=== PATIENT | male | born 1940 | race Hispanic/Latino ===

== ENCOUNTER → 2017-11-12 | Outpatient (CLI) | payer OTHER ==
[~2017-11-12] MED LIST: ACETAMINOPHEN325 M1 PO; AMLODIPINE BESY10 MG PO; AMLODIPINE BESYL5 MG PO; ASPIRIN EC81 MG PO; ASPIRIN81 MG PO; ATORVASTATIN CA20 MG PO; ATORVASTATIN CA40 MG PO; AZITHROMYCIN250 MG PO; CEPHALEXIN500 MG PO; CLONIDINE HCL0.1 MG PO; FERROUS SULFAT325 MG PO; FEXOFENADINE H180 MG PO; FUROSEMIDE20 MG PO; FUROSEMIDE40 MG PO; GABAPENTIN300 MG PO; KIONEX15 GM/60 M; KIONEX15 GM/60 M PO; LANTUS 3ML100 UNITS/; LANTUS 3ML100 UNITS/ SQ; LANTUS100 UNITS/ SQ; LISINOPRIL10 MG PO; LOSARTAN POTASS50 MG PO; MUCINEX DM ER1 EACH PO; MUCUS RELIEF400 MG PO; NIFEDICAL XL60 MG PO; NIFEDIPINE ER30 M1 PO; NIFEDIPINE10 MG PO; NOVOLOG100 UNITS1; PHENERGAN25 MG/1 ML PO; RENA-VITE RX T1 EACH PO; RENA-VITE TABL0.8 MG; RENA-VITE TABL0.8 MG PO; RENVELA0.8 GM PEG; RENVELA800 MG PO; SIMVASTATIN40 MG PO; SODIUM CHLORIDE 0.9% 500ML 500 ML ONE; STOOL SOFTENER100 M1 PO; TEKTURNA300 MG PO; TEMAZEPAM15 MG PO; TYLENOL WITH C1 EACH PO; VIAGRA PO; VITAMIN D1000 UNIT PO; VITAMIN D250000 UNIT PO; VITAMIN D32000 UNIT PO
[2017-11-12 16:11] LABS: BASOPHILS % 0.4 % (0.0-1.0); EOSINOPHILS # (AUTO) 0.1 (0.0-0.4); EOSINOPHILS % 2.6 % (0.0-6.0); HEMATOCRIT 40.6 % (38.2-49.6); HEMOGLOBIN 13.3 g/dL (14.0-18.0); LYMPHOCYTES # (AUTO) 2.1 (1.0-3.2); LYMPHOCYTES % 41.7 % (18.0-39.1); MEAN CORPUSCULAR HEMOGLOBIN 33.6 pg (28-32); MEAN CORPUSCULAR HGB CONC 32.8 g/dL (31-35); MEAN CORPUSCULAR VOLUME 102.5 fL (81-99); MONOCYTES # (AUTO) 0.4 (0.2-0.8); MONOCYTES % 8.6 % (4.4-11.3); NEUTROPHILS # (AUTO) 2.4 (2.1-6.9); NEUTROPHILS % 46.5 % (38.7-80.0); PLATELET COUNT 200 x10e3/uL (140-360); RED BLOOD COUNT 3.96 x10e6/uL (4.3-5.7); RED CELL DISTRIBUTION WIDTH 12.7 % (11.7-14.4)
[2017-11-12 16:20] LABS: ANION GAP 17.9 mmol/L (8-16); CALCIUM 9.4 mg/dL (8.4-10.2); CREATININE, SERUM 6.99 mg/dL (0.72-1.25); POTASSIUM 4.9 mmol/L (3.5-5.1)
== END ==
LOC: RAD 05:00 → OR 11-13 05:12 → EDSTATUS 11-13 14:12
PROVIDERS: ATTEND Internal Medicine Gastroenterology
DX: Z01.818 Encounter for other preprocedural examination (principal); I10 Essential (primary) hypertension; Z68.23 Body mass index [BMI] 23.0-23.9, adult; Z86.010 Personal history of colon polyps; Z53.8 Procedure and treatment not carried out for other reasons
CPT/HCPCS: 36415; 80048; 84132; 85025; 93005; J7040

== ENCOUNTER 2017-11-13 06:49 | Observation (INO) | payer OTHER ==
[~2017-11-13] VITALS: Ht 162.6 cm; Wt 62.2 kg
[~2017-11-13 06:49] MED LIST changes: -SODIUM CHLORIDE 0.9% 500ML 500 ML ONE
[2017-11-13 08:20] LABS: ANION GAP 26.4 mmol/L (8-16); CALCIUM 10.4 mg/dL (8.4-10.2); CREATININE, SERUM 9.85 mg/dL (0.72-1.25)
[2017-11-13] MEDS ORDERED: SODIUM BICARBONATE 8.4% 50 ML VIAL IV STA ×2 (08:22→08:49)
[2017-11-13] MEDS ORDERED: DEXTROSE 50% SYRINGE 50 ML IV STA (08:22)
[2017-11-13 08:24] LABS: POTASSIUM 6.4 mmol/L (3.5-5.1)
[2017-11-13] MEDS ORDERED: INSULIN REGULAR, HUMAN 100 UNIT/1 ML 3ML VIAL IV ONE (08:30)
[2017-11-13] MEDS ORDERED: CALCIUM GLUCONATE 10% INJ 9.3 MEQ in SODIUM CHLORIDE 0.9% 100 ML 100 ML IV ONE (08:30)
[2017-11-13] MEDS ORDERED: SOD POLYSTYRENE SULFONATE SUSP 15 GM/60 ML BTL PO ONE (08:30)
[2017-11-13] MEDS ORDERED: SODIUM CHLORIDE 0.9% IV SCH (09:00)
[2017-11-13] MEDS ORDERED: CALCIUM CHLORIDE IV SCH (09:00)
[2017-11-13 12:44] LABS: ANION GAP 26.1 mmol/L (8-16); CALCIUM 10.6 mg/dL (8.4-10.2); CREATININE, SERUM 10.34 mg/dL (0.72-1.25)
[2017-11-13 12:50] LABS: POTASSIUM 6.1 mmol/L (3.5-5.1)
[2017-11-13] MEDS ORDERED: ONDANSETRON HCL INJ 2 MG/ML VIAL IV PRN (14:15)
[2017-11-13] MEDS ORDERED: SODIUM CHLORIDE FLUSH 10 ML SYR INJ PRN (14:15)
[2017-11-13] MEDS ORDERED: LABETALOL HCL IV 5 MG/ML 20ML MDV IV ONE (16:00)
[2017-11-13] MEDS: CLONIDINE HCL 0.2 MG TAB PO SCH ×2 (16:00→21:00)
[2017-11-13 16:04] VITALS: BP 200/95
[2017-11-13] MEDS ORDERED: SODIUM CHLORIDE 0.9% 1000ML 2,000 ML ONE (16:19)
[2017-11-13] MEDS: SODIUM BICARBONATE 650 MG TAB PO SCH (16:54)
[2017-11-13 17:00] VITALS: BP 164/98
[2017-11-13 17:18] VITALS: BP 200/95
[2017-11-13 20:00] VITALS: BP 107/69
[2017-11-14] VITALS (7 sets, daily range): BP systolic 100–142; BP diastolic 61–82
[2017-11-14 05:54] LABS: BASOPHILS % 0.4 % (0.0-1.0); EOSINOPHILS # (AUTO) 0.1 (0.0-0.4); EOSINOPHILS % 1.4 % (0.0-6.0); HEMATOCRIT 41.5 % (38.2-49.6); HEMOGLOBIN 13.6 g/dL (14.0-18.0); LYMPHOCYTES # (AUTO) 1.4 (1.0-3.2); LYMPHOCYTES % 17.1 % (18.0-39.1); MEAN CORPUSCULAR HEMOGLOBIN 33.7 pg (28-32); MEAN CORPUSCULAR HGB CONC 32.8 g/dL (31-35); MEAN CORPUSCULAR VOLUME 102.7 fL (81-99); MONOCYTES # (AUTO) 0.7 (0.2-0.8); NEUTROPHILS # (AUTO) 5.8 (2.1-6.9); PLATELET COUNT 200 x10e3/uL (140-360); RED BLOOD COUNT 4.04 x10e6/uL (4.3-5.7); RED CELL DISTRIBUTION WIDTH 12.7 % (11.7-14.4)
[2017-11-14 06:25] LABS: ALBUMIN 3.6 g/dL (3.5-5.0); ALBUMIN/GLOBULIN RATIO 0.8 (0.8-2.0); ANION GAP 21.3 mmol/L (8-16); CALCIUM 9.1 mg/dL (8.4-10.2); CREATININE, SERUM 7.57 mg/dL (0.72-1.25); MAGNESIUM 2.1 MG/DL (1.3-2.1); PHOSPHORUS 6.5 MG/DL (2.3-4.7); POTASSIUM 4.3 mmol/L (3.5-5.1)
[2017-11-14] MEDS: CLONIDINE HCL 0.2 MG TAB PO SCH ×3 (09:27→21:00)
[2017-11-14] MEDS: SODIUM BICARBONATE 650 MG TAB PO SCH ×2 (09:27→16:54)
--- NOTE | 2017-11-14 11:38 | History and Physical ---
PCP: Dr. Bryant Goldstein RECYCLING TECHNICIAN: Dr. Samira Patterson CHIEF COMPLAINT: Elevated potassium. HISTORY OF PRESENT ILLNESS: Patient is a 77-year-old male on dialysis. He came in because potassium was high even after his dialysis. He did receive dialysis yesterday. His dialysis days are Thursday, and Thursday. Patient is otherwise stable. He started dialysis at 10 a.m. The patient will get dialysis today and then go home. Apparently, he is noncompliant to his renal diet. PAST MEDICAL HISTORY 1. End-stage renal disease on dialysis. Dialysis has been for the past 3-1/2 to 4 years. 2. Hypertension. 3. Diabetes, type 2. 4. Hyperlipidemia. 5. Insomnia. HOME MEDICATIONS: List reviewed. ALLERGIES: NO KNOWN ALLERGIES. PAST SURGICAL HISTORY: Dialysis catheter and fistula. SOCIAL HISTORY: Patient does not smoke or use alcohol. No recreational drugs. REVIEW OF SYSTEMS: As mentioned. PHYSICAL EXAMINATION VITAL SIGNS: Temperature is 98. Blood pressure is 115/78. Pulse rate 95. Respirations 18. GENERAL: The patient is in no acute distress. He is awake. HEENT: Normocephalic, atraumatic. Sclerae anicteric. NECK: Supple grossly. PULMONARY: Clear. CARDIOVASCULAR: Regular rate and rhythm. ABDOMEN: Soft and unremarkable. EXTREMITIES: No cyanosis or edema. NEUROLOGIC: No focal deficit. LABORATORY: Sodium is 147, potassium 6.4, chloride 109, bicarb 18, BUN 48, creatinine 9.8. IMPRESSION 1. High potassium post dialysis. 2. Recurrent dialysis. 3. Baseline end-stage renal disease on dialysis, noncompliant to diet. PLAN: Dialysis today. Renal diet, instructions given. The patient is stable. Once he gets dialysis, the patient may discharge home today. Job#: [id number]
[2017-11-14] MEDS: SEVELAMER CARBONATE 800 MG TAB PO SCH ×2 (11:43→16:54)
[2017-11-14] MEDS ORDERED: INSULIN DETEMIR 100 UNIT/ML PEN SQ SCH (17:00)
[2017-11-14] MEDS ORDERED: ATORVASTATIN 20 MG TAB PO SCH (21:00)
[2017-11-15] MEDS ORDERED: LORATADINE 10 MG TAB PO SCH (09:00)
[2017-11-15] MEDS ORDERED: ASPIRIN 81 MG ENTERIC COATED PO SCH (09:00)
[2017-11-15] MEDS ORDERED: AMLODIPINE BESYLATE 10 MG TAB PO SCH (09:00)
[2017-11-15] MEDS ORDERED: ACETAMINOPHEN 325 MG TAB PO SCH (09:00)
[2017-11-15] MEDS ORDERED: NIFEDIPINE 10 MG CAP PO SCH (09:00)
[2017-11-15] MEDS ORDERED: FUROSEMIDE 40 MG TAB PO SCH (09:00)
[2017-11-15] MEDS ORDERED: SIMVASTATIN 40 MG TAB PO SCH (09:00)
--- NOTE | 2017-11-17 11:36 | Consultation ---
DATE OF CONSULTATION: RENAL CONSULTATION HISTORY OF PRESENT ILLNESS: Mr. Efrain Hoang is a 77-year-old gentleman who was sent here for abnormal labs. He is a patient of Dr. Stephens, dialyzes at [place] dialysis unit. Currently awake, alert. No apparent distress. Denies any nausea, vomiting but does feeling weak. Also denies any chest pain, shortness of breath. ALLERGIES: NO APPARENT DRUG ALLERGIES. SOCIAL HISTORY: Does not smoke or drink. by bedside. FAMILY HISTORY: Significant for hypertension and diabetes. PAST MEDICAL HISTORY: Significant for end-stage renal disease, underlying diabetes, hypertension secondary to hyperparathyroidism. HOME MEDICATIONS: Not reconciled yet. LABS: Show sodium 147, potassium 6.4 with a chloride 109, bicarbonate 18, creatinine 9.85 with a calcium of 10.6. PHYSICAL EXAMINATION: GENERAL: Awake, alert. Lying supine. No apparent distress. VITALS: Blood pressure 174/93. Pulse rate 88. HEAD AND NECK: Cornea clear. Oral mucosa dry. LUNGS: Relatively clear. HEART: S1/S2 audible. ABDOMEN: Otherwise soft, nontender. LOWER EXTREMITY EXAMINATION: Shows no edema. IMPRESSION/PLAN: Hypercalcemia. Hyperkalemia. Metabolic acidosis. Life-threatening hyperkalemia. Plan on arranging for stat dialysis. Dialysis nurse already notified at the time of dictation. Will start p.o. bicarbonate. Obtain intact PTH. Will dialyze with an appropriately low potassium and calcium bath. Job#: [id number] EV
--- NOTE | 2017-11-20 10:08 | Progress Note ---
DATE: DIALYSIS NOTE SUBJECTIVE: Patient on dialysis. Awake, alert, lying supine. OBJECTIVE VITAL SIGNS: Blood pressure 178/90, pulse rate 90, afebrile, respiratory 16, afebrile, with oxygen saturation 98%. HEAD AND NECK: Cornea clear. Oral mucosa dry. LUNGS: Relatively clear. HEART: S1/S2 audible. ABDOMEN: Soft, nontender. LOWER EXTREMITIES: No edema. IMPRESSION/PLAN: End-stage renal disease, life-threatening hyperkalemia, metabolic acidosis, hypercalcemia, on dialysis. Sodium 140, potassium 2, bicarb 40, calcium 2. Blood flow 400, dialysate flow 800. UF as tolerated. Job#: [id number] EV
== END 2017-11-14 22:48 | disposition home or self-care (01) ==
LOC: ER 06:49 → ERHOLD 15:09 → IMCU 15:10
PROVIDERS: ADMIT Internal Medicine; ATTEND Internal Medicine
DX: E87.5 Hyperkalemia (principal); E83.52 Hypercalcemia; E87.2 Acidosis; E87.0 Hyperosmolality and hypernatremia; E87.8 Other disorders of electrolyte and fluid balance, not elsewhere classified; E86.0 Dehydration; I12.0 Hypertensive chronic kidney disease with stage 5 chronic kidney disease or end stage renal disease; E11.22 Type 2 diabetes mellitus with diabetic chronic kidney disease; N18.6 End stage renal disease; Z79.4 Long term (current) use of insulin; Z99.2 Dependence on renal dialysis; N25.81 Secondary hyperparathyroidism of renal origin; E78.5 Hyperlipidemia, unspecified; G47.00 Insomnia, unspecified; Z91.11 Patient's noncompliance with dietary regimen; Z79.82 Long term (current) use of aspirin
CPT/HCPCS: 36415 ×2; 80048; 80053; 82948 ×2; 83735; 83970; 84100; 85025; 87340; 99284; G0378 ×2; J3490; J7030; J7050; J7799

== ENCOUNTER → 2018-01-01 | Day surgery (SDC) | payer OTHER ==
[2017-12-30 10:38] LABS: BASOPHILS # (AUTO) 0.1 (0.0-0.1); BASOPHILS % 0.9 % (0.0-1.0); EOSINOPHILS # (AUTO) 0.2 (0.0-0.4); EOSINOPHILS % 2.6 % (0.0-6.0); HEMATOCRIT 36.5 % (38.2-49.6); HEMOGLOBIN 11.6 g/dL (14.0-18.0); LYMPHOCYTES # (AUTO) 2.3 (1.0-3.2); LYMPHOCYTES % 39.5 % (18.0-39.1); MEAN CORPUSCULAR HEMOGLOBIN 33.6 pg (28-32); MEAN CORPUSCULAR HGB CONC 31.8 g/dL (31-35); MEAN CORPUSCULAR VOLUME 105.8 fL (81-99); MONOCYTES # (AUTO) 0.6 (0.2-0.8); MONOCYTES % 10.5 % (4.4-11.3); NEUTROPHILS # (AUTO) 2.6 (2.1-6.9); NEUTROPHILS % 46.2 % (38.7-80.0); PLATELET COUNT 220 x10e3/uL (140-360); RED BLOOD COUNT 3.45 x10e6/uL (4.3-5.7); RED CELL DISTRIBUTION WIDTH 13.2 % (11.7-14.4)
[~2018-01-01] MED LIST changes: +CLONIDINE HCL0.2 MG PO; +RENVELA0.8 GM PO; +SIMETHICONE 40 MG/0.6 ML BTL ONE; +SODIUM CHLORIDE 0.9% 500ML 500 ML ONE
--- OUTSIDE RECORDS SUMMARY | 2018-01-01 05:29 | XMS REPORT ---
Author Author [facility] Address Unknown Phone Unavailable Care Team Providers Care Warp Hauler Name Role Phone GUSTAVO NUGENT Unavailable Unavailable Problems This patient has no known problems. Allergies, Adverse Reactions, Alerts This patient has no known allergies or adverse reactions. Medications This patient has no known medications. Results Test Description Test Time Test Comments Text Results Atomic Results Result Comments CHEST 2 VIEWS [place] [address] Patient Name: KEVAN ARAGON MR #: [id number] : 1940 Age/Sex: 77/M Req # : [id number] Adm Physician: Ordered by: GUSTAVO NUGENT MD Report #: [id number] Location: ER Room/Bed: Procedure: [id number] DX/CHEST 2 VIEWS Exam Date: 06/29/17 Exam Time: 1730 REPORT STATUS: Signed EXAM: CHEST 2 VIEWS, PA and lateral DATE: 2017 5:57 PM Time stamp on exam: 1754 hours INDICATION: Dialysis, weakness COMPARISON: PA and lateral view of the chest April 05, 2016 A preliminary report was provided by Dr. Sahu 2017 at 2122 hours. FINDINGS: LINES/TUBES: None LUNGS: No consolidations or edema. Emphysematous changes. PLEURA: No effusions or pneumothorax. Blunting of the cardiophrenic angles likely due to emphysema. HEART AND MEDIASTINUM: The heart is at the upper limits of normal in size. BONES AND SOFT TISSUES : No acute findings. Chronic-appearing fragmentation of the distal left clavicle. IMPRESSION: Emphysematous changes without consolidation. Signed by: Dr. Keturah Sahu M.D. on 07/14/2017 10:30 PM Dictated By: KETURAH SAHU MD 29 COPY TO: GUSTAVO NGUENT MD
== END | disposition home or self-care (01) ==
LOC: OR 05:25
PROVIDERS: ATTEND Internal Medicine Gastroenterology
DX: Z09 Encounter for follow-up examination after completed treatment for conditions other than malignant neoplasm (principal); K63.5 Polyp of colon; K57.30 Diverticulosis of large intestine without perforation or abscess without bleeding; K64.8 Other hemorrhoids; E78.5 Hyperlipidemia, unspecified; E11.22 Type 2 diabetes mellitus with diabetic chronic kidney disease; I12.0 Hypertensive chronic kidney disease with stage 5 chronic kidney disease or end stage renal disease; N18.6 End stage renal disease; R00.1 Bradycardia, unspecified; Z01.810 Encounter for preprocedural cardiovascular examination; Z01.812 Encounter for preprocedural laboratory examination; Z99.2 Dependence on renal dialysis
CPT/HCPCS: 36415 ×2; 45380; 45385; 82948; 84132; 85025; 93005; J7040

== ENCOUNTER → 2018-02-05 | Day surgery (SDC) | payer OTHER ==
[2018-02-03 11:45] LABS: BASOPHILS % 0.4 % (0.0-1.0); EOSINOPHILS # (AUTO) 0.1 (0.0-0.4); EOSINOPHILS % 1.8 % (0.0-6.0); HEMATOCRIT 37.7 % (38.2-49.6); HEMOGLOBIN 12.3 g/dL (14.0-18.0); LYMPHOCYTES # (AUTO) 1.2 (1.0-3.2); LYMPHOCYTES % 22.4 % (18.0-39.1); MEAN CORPUSCULAR HEMOGLOBIN 33.6 pg (28-32); MEAN CORPUSCULAR HGB CONC 32.6 g/dL (31-35); MONOCYTES # (AUTO) 0.3 (0.2-0.8); MONOCYTES % 5.3 % (4.4-11.3); NEUTROPHILS # (AUTO) 3.6 (2.1-6.9); NEUTROPHILS % 69.9 % (38.7-80.0); PLATELET COUNT 199 x10e3/uL (140-360); RED BLOOD COUNT 3.66 x10e6/uL (4.3-5.7); RED CELL DISTRIBUTION WIDTH 12.9 % (11.7-14.4)
[~2018-02-05] MED LIST changes: +LIDOCAINE HCL 2% LOCAL INJ 5 ML SDV VIAL INJ ONE; +PROPOFOL IV EMULSION 10 MG/ML 50 ML VIAL ONE
== END | disposition home or self-care (01) ==
LOC: OR 05:22
PROVIDERS: ATTEND Internal Medicine Gastroenterology
DX: Z12.11 Encounter for screening for malignant neoplasm of colon (principal); D12.3 Benign neoplasm of transverse colon; K57.30 Diverticulosis of large intestine without perforation or abscess without bleeding; K64.8 Other hemorrhoids; E78.5 Hyperlipidemia, unspecified; E11.22 Type 2 diabetes mellitus with diabetic chronic kidney disease; I12.0 Hypertensive chronic kidney disease with stage 5 chronic kidney disease or end stage renal disease; N18.6 End stage renal disease; R00.1 Bradycardia, unspecified; Z01.812 Encounter for preprocedural laboratory examination; Z99.2 Dependence on renal dialysis; Z79.4 Long term (current) use of insulin; Z79.82 Long term (current) use of aspirin; Z87.891 Personal history of nicotine dependence
CPT/HCPCS: 36415 ×2; 45385; 82948; 84132; 85025; J2001; J7040; 45378